=== PATIENT | female | born 1955 | race Caucasian/White ===

== ENCOUNTER 2017-12-16 11:11 | Inpatient (IN) ==
[2017-12-16 12:06] LABS: Bilirubin,Urine Small (Negative); Blood,Urine Negative (Negative); Clarity,Urine Cloudy (Clear); Color,Urine Dark Yellow (Yellow); Glucose,Urine (UA) Normal (Normal); Ketones,Urine Negative (Negative); Leukocyte Esterase,Urine Small (Negative); Nitrite,Urine Negative (Negative); Protein,Urine 30 mg/dL (Neg-Trace); Specific Gravity,Urine 1.021 (1.010-1.025); Urobilinogen,Urine Normal (Normal)
[2017-12-16] MEDS ORDERED: *HR* FentaNYL (PF) 100 MCG/2 ML VIAL IVP ONE (12:06)
[2017-12-16] MEDS ORDERED: Ondansetron 4 MG/2 ML VIAL IVP ONE (12:06)
[2017-12-16 12:09] LABS: Bacteria,Urine None Seen per hpf (None-Few); Hyaline Casts,Urine Few per lpf (None-Few); Squamous Epithelial Cell,Urine Many per lpf (None-Few); WBC,Urine 15-30 per hpf (0-3)
--- NOTE | 2017-12-16 12:13 | Emergency Department Note ---
Disposition Clinical Impression: Cholecystitis Disposition: Admitted As Inpatient Condition: Fair Referrals: aCssie Campa CNP [Primary Care Provider] - Forms: ED Satisfaction Letter, Work/School Release Time of Disposition: 14:09 Abdominal Pain HPI - General Chief Complaint: ED Abdominal Pain Stated Complaint: "gallstone" Time Seen by Provider: 12/16/17 11:49 Source: patient Limitations: no limitations Nursing Notes Reviewed: Yes Vital Signs Reviewed: Yes - History of Present Illness HPI Narrative: Patient presents to the ED with a chief complaint of upper abdominal pain. She is having similar symptoms last night and went to [facility]. She said they did a CT scan was abnormal and told her she had a stone in the gallbladder neck. She states she was told was inflamed but she did not want to see the surgeon so she comes here today. Patient states she has had gallbladder problems for years but it is worse today. She is not vomited that she has taken Zofran. She had a fever home of 99. Pain Scale: 7 - Related Data Allergies Allergy/AdvReac Type Severity Reaction Status Date / Time naproxen Allergy Hives Verified 12/16/17 11:20 All systems ED: reviewed and negative except as stated. Constitutional: Denies: fever Cardiovascular: Denies: chest pain Gastrointestinal: Reports: abdominal pain, nausea. Denies: vomiting, diarrhea Abdominal Pain PMH - Past Medical History Medical history: Reports: other (pulm fibrosis) Female Surgical History: Reports: no surgical history Psychiatric history: Reports: depression - Social History Smoking status: Current every day smoker Alcohol use: Reports: none Drug use: Reports: none Physical Exam Patient awake and alert laying on her side. She has right upper quadrant tenderness with positive Briggs sign. - General Limitations: no limitations General appearance: alert - Head Head exam: atraumatic, normocephalic - Eye Eye exam: Present: normal appearance - ENT ENT exam: normal exam - Neck Neck exam: Present: normal inspection - Chest Chest inspection: Present: normal inspection - Respiratory Respiratory exam: Present: normal lung sounds bilaterally - Cardiovascular Cardiovascular exam: Present: regular rate, normal rhythm, normal heart sounds - Neurological Exam Neurological exam: Present: alert, oriented X3 - Psychiatric Psychiatric exam: Present: normal affect - Skin Skin exam: Present: warm, dry Course Course Narrative: Hemolytically stable. Attempting to obtain CT from [facility]. Will check ultrasound gallbladder. Pain control the meantime. - Reevaluation(s) Reevaluation #1: Exam and ultrasound consistent with a cholecystitis. Page eating surgery. Patient requesting consult Dr. Sharpe. Time: 13:21 - Consultations Consultation #1: Dr. Sharpe evaluated the patient in the ED and will take to the OR. Time: 14:08 Vital Signs Temperature 99.4 F 12/16/17 11:20 Pulse Rate 114 12/16/17 11:20 Respiratory Rate 20 12/16/17 11:20 Blood Pressure 117/68 12/16/17 11:20 O2 Sat by Pulse Oximetry 94 12/16/17 11:20 Temperature 99.4 F 12/16/17 11:20 Pulse Rate 102 12/16/17 13:26 Respiratory Rate 16 12/16/17 13:26 Blood Pressure 116/59 12/16/17 13:26 O2 Sat by Pulse Oximetry 92 12/16/17 13:26 Oxygen Delivery Oxygen Delivery Nasal Cannula Abdominal Pain - Lab Data Result diagrams: 12/16/17 12:26 12/16/17 12:26 Lab Results 12/16/17 12/16/17 12/16/17 Range/Units 11:30 12:26 12:26 WBC 19.9 H (4.3-11.1) K/mcL RBC 4.88 (3.82-4.97) M/mcL Hgb 14.9 (11.5-15.4) g/dL Hct 43.3 (35.3-44.9) % MCV 88.7 (83.0-100.0) fL MCH 30.5 (28.0-33.3) pg MCHC 34.4 (31.6-35.5) g/dL RDW 12.5 (11.5-14.5) % Plt Count 356 (140-400) K/mcL MPV 9.9 (9.4-12.4) fL Immature Gran % 0.7 (0-4) % Seg Neutrophils % 77.7 % Lymphocytes % 13.7 % Monocytes % 7.5 % Eosinophils % 0.1 % Basophils % 0.3 % Neutrophils # 15.5 H (1.6-8.9) K/mcL Lymphocytes # 2.7 (0.6-4.6) K/mcL Monocytes # 1.5 H (0.0-1.3) K/mcL Eosinophils # 0.0 (0.0-0.6) K/mcL Basophils # 0.1 (0.0-0.2) K/mcL Sodium 133 L (136-145) mEq/L Potassium 3.5 (3.5-5.1) mEq/L Chloride 100 (98-107) mEq/L Carbon Dioxide 27 (23-29) mEq/L BUN 9 (8-23) mg/dL Creatinine 0.61 (0.60-1.20) mg/dL Est GFR ( Amer) > 60 (> 60) Est GFR (Non-Af Amer) > 60 (> 60) BUN/Creatinine Ratio 15 (6-26) Glucose 134 H (70-105) mg/dL Calculated Osmolality 277 L (280-300) Calcium 8.9 (8.6-10.3) mg/dL Total Bilirubin 0.7 (0.3-1.0) mg/dL AST 15 (13-39) Units/L ALT 14 (7-52) Units/L Alkaline Phosphatase 84 (34-104) Units/L Serum Total Protein 6.9 (6.4-8.9) g/dL Albumin 3.8 (3.5-5.7) g/dL Globulin 3.1 (2.4-3.5) g/dL Albumin/Globulin Ratio 1.2 (1.1-2.2) Amylase 21 L (29-103) Units/L Lipase 3 L (11-82) Units/L Urine Color Dark Yellow (Yellow) Urine Clarity Cloudy A (Clear) Urine pH 7.0 (5.0-8.0) pH Units Ur Specific Hunters 1.021 (1.010-1.025) Urine Protein 30 H (Neg-Trace) mg/dL Urine Glucose (UA) Normal (Normal) mg/dL Urine Ketones Negative (Negative) mg/dL Urine Blood Negative (Negative) Urine Nitrite Negative (Negative) Urine Bilirubin Small H (Negative) Urine Urobilinogen Normal (Normal) mg/dL Ur Leukocyte Esterase Small H (Negative) Urine Microscopic RBC 5-15 H (0-3) per hpf Urine Microscopic WBC 15-30 H (0-3) per hpf Ur Squamous Epith Cells Many H (None-Few) per lpf Ur Renal Epithelial Cell Few (None-Few) per hpf Urine Bacteria None Seen (None-Few) per hpf Hyaline Casts Few (None-Few) per lpf Ur Culture Indicated? NO. A (NO)
[2017-12-16] MEDS ORDERED: 0.9 % Sodium Chloride 1,000 ML IVC ONE (12:15)
[2017-12-16 12:32] LABS: Renal Epithelial Cells,Urine Few per hpf (None-Few)
[2017-12-16 12:45] LABS: Basophils # 0.1 K/mcL (0.0-0.2); Basophils % 0.3 %; Eosinophils % 0.1 %; Hematocrit 43.3 % (35.3-44.9); Hemoglobin 14.9 g/dL (11.5-15.4); Immature Granulocytes % 0.7 % (0-4); Lymphocytes # 2.7 K/mcL (0.6-4.6); Lymphocytes % 13.7 %; Mean Corpuscular HGB Conc 34.4 g/dL (31.6-35.5); Mean Corpuscular Hemoglobin 30.5 pg (28.0-33.3); Mean Corpuscular Volume 88.7 fL (83.0-100.0); Mean Platelet Volume 9.9 fL (9.4-12.4); Monocytes # 1.5 K/mcL (0.0-1.3); Monocytes % 7.5 %; Neutrophils # 15.5 K/mcL (1.6-8.9); Platelet Count 356 K/mcL (140-400); Red Blood Count 4.88 M/mcL (3.82-4.97); Red Cell Distribution Width 12.5 % (11.5-14.5); Segmented Neutrophils % 77.7 %
[2017-12-16 13:20] LABS: Alanine Aminotransferase 14 Units/L (7-52); Albumin 3.8 g/dL (3.5-5.7); Albumin/Globulin Ratio 1.2 (1.1-2.2); Alkaline Phosphatase 84 Units/L (34-104); Amylase 21 Units/L (29-103); Aspartate Amino Transferase 15 Units/L (13-39); BUN/Creatinine Ratio 15 (6-26); Bilirubin,Total 0.7 mg/dL (0.3-1.0); Blood Urea Nitrogen 9 mg/dL (8-23); Calcium 8.9 mg/dL (8.6-10.3); Carbon Dioxide 27 mEq/L (23-29); Chloride 100 mEq/L (98-107); Globulin 3.1 g/dL (2.4-3.5); Glucose 134 mg/dL (70-105); Lipase 3 Units/L (11-82); Osmolality,Calculated 277 (280-300); Potassium 3.5 mEq/L (3.5-5.1); Sodium 133 mEq/L (136-145); Total Protein 6.9 g/dL (6.4-8.9); eGFR For African Americans > 60 (> 60); eGFR For Non-African Americans > 60 (> 60)
[2017-12-16] MEDS ORDERED: Piperacillin/Tazobactam 3.375 GM in 0.9 % Sodium Chloride Mini Bag 100 ML IVPB ONE ×2 (14:06→22:00)
--- NOTE | 2017-12-16 14:37 | General Surg History&Physical ---
Date of Encounter: 12/16/17 Time of Encounter: 13:50 History of Present Illness Chief complaint: Right upper quadrant abdominal pain HPI: Ms. Rosales is a 62 year old, referred for further surgical evaluation of approximately a 48 hour history of progressive right upper quadrant abdominal pain. Ultrasound gallbladder shows sludge and stones within the gallbladder, markedly thickening of the gallbladder wall as well as a positive sonographic Briggs's sign. Pericholecystic fluid was not definitively seen however the exam was limited by overlying bowel gas. The patient's clinical findings, sonogram and labs are consistent with acute calculus cholecystitis. The patient describes severe pain, nausea but no vomiting, fevers, chills, or jaundice. Past medical history: Pulmonary fibrosis, chronic hypoxia for which the patient uses home oxygen; depression Surgical history: None Allergies Naprosyn Medications: Q [id number] Supplemental oxygen at 4 L/m nasal cannula Social history: Patient continues to smoke; she admits to rare alcoholic beverage does not consume any illicit drug Physical examination: Age-appropriate woman, resting comfortably in her emergency department bed. She is 1.6 m tall, 95.25 kg, BMI 35.5. She is on oxygen via nasal cannula 3 L/min Temperature 99.4, pulse 102-114; respiratory rate 16-20; blood pressure 116/ 59; SPO2 on 3 L/m 92-94%. Skin: Warm, no obvious jaundice Lungs: Harsh breath sounds but no obvious wheezing or rales. No abdominal pain and deep inspiration. Frequent nonproductive cough. Cardiac: Rapid rate but no appreciable murmurs Abdomen: Soft, tender right upper quadrant just lateral to the midclavicular line, subcostal space. Hypoactive bowel sounds. The gallbladder is nonpalpable but exam is limited by involuntary guarding in the right upper quadrant Extremities: No obvious clubbing, cyanosis, or edema. Laboratories: White count 19.9, hemoglobin 14.9, hematocrit 43.3. Platelet count 356,000. Neutrophils 15.5 Sodium 133, potassium 3.5, BUN 9, creatinine 0.61; blood glucose 134 Bilirubin 0.7, AST 15, ALT 14, alkaline phosphatase 84. Amylase 21, lipase 3 Urinalysis notable for pH 7.0, specific gravity 1.0-1 protein 30, leukocyte esterase small; 5-15RFBC/hpf; 15-30WBC/hpf Impression: Acute calculus cholecystitis Chronic pulmonary fibrosis with hypoxemia Plan: Admit for surgical intervention (cholecystectomy) later today. This is been discussed in detail with the patient and her family in attendance. Risks of surgery include hemorrhage, infection, intra-abdominal abscess, Bile leak, injury to adjacent ducks, vessels, organs, or bowel. The patient is at increased risk for respiratory complications such as pneumonia, respiratory failure, hypoxia which may require prolonged mechanical ventilation. The patient is a reasonable candidate for laparoscopic cholecystectomy but understands an open cholecystectomy may become necessary. The risk of nonoperative management or delaying surgery including worsening cholecystitis, sepsis, and increased difficulty of surgery requiring additional operative time and increased anesthesia time. These factors include contribute to worsening pulmonary status. The patient expressed understanding and is willing to proceed as outlined above. The patient will be kept NPO, she will be provided her usual home meds, supplemental oxygen, and pain meds. Zosyn has been initiated in the emergency department and will be continued until surgery. Past Med Surg Social Fam HX - Past Medical History Medical history: other (pulm fibrosis) Psychiatric history: depression - Social History Smoking Status: Current every day smoker Smokeless Tobacco Status: No Alcohol use: none Drug use: none Medications and Allergies 3 Allergy/AdvReac Type Severity Reaction Status Date / Time naproxen Allergy Hives Verified 12/16/17 11:20 Review of Systems All systems PM: The remainder of the systems were reviewed and are negative General Surgery Exam Initial Vital Signs Temp Pulse Resp BP Pulse Ox 99.4 F 114 20 117/68 94 12/16/17 11:20 12/16/17 11:20 12/16/17 11:20 12/16/17 11:20 12/16/17 11:20 Results - Labs 12/16/17 12:26 12/16/17 12:26 Abnormal lab results WBC 19.9 K/mcL (4.3-11.1) H 12/16/17 12:26 Neutrophils # 15.5 K/mcL (1.6-8.9) H 12/16/17 12:26 Monocytes # 1.5 K/mcL (0.0-1.3) H 12/16/17 12:26 Sodium 133 mEq/L (136-145) L 12/16/17 12:26 Glucose 134 mg/dL (70-105) H 12/16/17 12:26 Calculated Osmolality 277 (280-300) L 12/16/17 12:26 Amylase 21 Units/L (29-103) L 12/16/17 12:26 Lipase 3 Units/L (11-82) L 12/16/17 12:26 Urine Clarity Cloudy (Clear) A 12/16/17 11:30 Urine Protein 30 mg/dL (Neg-Trace) H 12/16/17 11:30 Urine Bilirubin Small (Negative) H 12/16/17 11:30 Ur Leukocyte Esterase Small (Negative) H 12/16/17 11:30 Urine Microscopic RBC 5-15 per hpf (0-3) H 12/16/17 11:30 Urine Microscopic WBC 15-30 per hpf (0-3) H 12/16/17 11:30 Ur Squamous Epith Cells Many per lpf (None-Few) H 12/16/17 11:30 Ur Culture Indicated? NO. (NO) A 12/16/17 11:30 All other labs normal.
[2017-12-16] MEDS ORDERED: *HR* OxyCODONE Immed Rel 5 MG TABLET PO PRN ×2 (15:26→17:36)
[2017-12-16] MEDS ORDERED: Ringers Solution, Lactated 1,000 ML IVC SCH (15:26)
[2017-12-16] MEDS ORDERED: Pantoprazole 40 MG VIAL IVP SCH (15:26)
--- NOTE | 2017-12-16 15:40 | Anesthesia Evaluation PreOp ---
Date of Encounter: 12/16/17 Time of Encounter: 15:38 - Past History Planned Operation: Lap. Maryann Cardiac History: Denies any Significant Hx Pulmonary History: Smoker, Other (Pulmonary fibrosis, chronic hypoxia for which the patient uses home oxygen) BRIM STITCHER History: Other (Depression) Other Medical History: Denies Any Significant HX Anesthesia History: No Prior Anesthetic Complications, Past Anesthesia : No Alcohol Use: none Drug use: none Medications and Allergies Beclomethasone Diprop 80mcg [QVAR 80 mcg] 1 puff IH BID 12/16/17 [History] Esomeprazole Magnesium [Nexium 24Hr] 20 mg PO DAILY 12/16/17 [History] Gabapentin [Neurontin] 300 mg PO HS 12/16/17 [History] Ibuprofen [Ibuprofen] 800 mg PO TID 12/16/17 [History] Loratadine [Claritin] 10 mg PO DAILY 12/16/17 [History] Venlafaxine HCl [Venlafaxine HCl ER] 37.5 mg PO DAILY 12/16/17 [History] hydroCHLOROthiazide [Hydrochlorothiazide] 25 mg PO DAILY 12/16/17 [History] 3 Allergy/AdvReac Type Severity Reaction Status Date / Time naproxen Allergy Hives Verified 12/16/17 11:20 - Meds/Allergy Pre-op Review Medications Reviewed: Yes Allergies Reviewed: Yes Beta Blockers on Current Med List: No Anesthesia Results - Labs 12/16/17 12:26 12/16/17 12:26 Anesthesia Exam Vital Signs/O2 Sat, Most Current Temp Pulse Resp BP Pulse Ox 100.0 F H 96 18 101/64 93 12/16/17 15:51 12/16/17 15:51 12/16/17 15:51 12/16/17 15:51 12/16/17 15:51 NPO (# of Hours): > 8 hrs Pain Scale: 0 Pain Scale Used: Numeric (1 - 10) - HEENT Pupil (Motor): Pupils equal, EOMI Mallampati: II Teeth: Missing Denture Type: Upper: Complete Oral Opening: Greater than 3 - BRIM STITCHER LOC: Oriented BRIM STITCHER Motor: Normal RUE, Normal LUE, Normal RLE, Normal LLE, Normal Face BRIM STITCHER Sensory: Normal: RUE, LUE, RLE, LLE, Face - Cardiac Rhythm: Regular Murmur: None JVD: No Carotid Bruit: No - Pulmonary Breath Sounds: bilateral Clear Respiratory Effort: Symmetrical Anesthesia Assess/Plan ASA Score: 3 Modified Alen Scale for Level of Consciousness: Cooperative, oriented, and tranquil Anesthetic Plan: General Autologous Blood: Yes Monitoring Plan: Standard Monitors Recovery Plan: PACU
[2017-12-16] MEDS ORDERED: Albuterol 2.5 MG/3 ML NEBULIZER ONE ×2 (16:32→20:37)
[2017-12-16] MEDS ORDERED: Albuterol 2.5 MG/3 ML NEBULIZER IH ONE ×2 (16:35→16:37)
[2017-12-16] MEDS ORDERED: Bupivacaine/EPI 1:200k 0.25%PF 30 ML VIAL ONE ×2 (16:40→18:26)
[2017-12-16] MEDS ORDERED: Isovue-300 50 ML VIAL IVP ONE (16:40)
[2017-12-16] MEDS ORDERED: *HR* Propofol 200 MG/20 ML VIAL IVP ONE (17:14)
[2017-12-16] MEDS ORDERED: *HR* FentaNYL (PF) 100 MCG/2 ML VIAL ONE ×2 (17:14→17:48)
[2017-12-16] MEDS ORDERED: *HR* Rocuronium Bromide 50 MG/5 ML VIAL ONE (17:15)
[2017-12-16] MEDS ORDERED: Lidocaine -MPF 2% 2 ML VIAL ONE (17:15)
[2017-12-16] MEDS ORDERED: Dexamethasone 4 MG/ML VIAL ONE (17:34)
[2017-12-16] MEDS ORDERED: Ondansetron 4 MG/2 ML VIAL ONE (17:34)
[2017-12-16] MEDS ORDERED: *HR* Promethazine 25 MG/ML VIAL IVP PRN (17:36)
[2017-12-16] MEDS ORDERED: Neostigmine Methylsulfate 3 MG/3 ML SYRINGE ONE (19:28)
--- NOTE | 2017-12-16 20:00 | Operative Note ---
Date of procedure: 12/16/17 Pre-op diagnosis: Acute calculus cholecystitis with edematous thickened gallbladder isaacs Post-op diagnosis: same Procedure: Laparoscopy, open cholecystectomy; intraoperative cholangiogram Complications: None apparent Anesthesia: GETA Local Anesthetics: 0.25% Sensorcaine HCL with Epinephrine 1:200,000 SubQ (cc) ( 57 mL) Surgeon: Avtar Sharpe Was there an education assistant present: No Estimated blood loss (cc): 250 IV fluids (cc): 1,100 Specimen: gallbladder Condition: stable Disposition: PACU Procedure in Detail: To the operating room where she was placed supine upon the operating room table. The patient was appropriately identified as to person and procedure. The accuracy of this information was confirmed by the patient and procedure team. The patient was intubated and anesthetized under the supervision of Dr. Russel Magdaleno. The abdomen was prepped and draped in usual sterile fashion. When the abdomen was examined under anesthesia, the gallbladder was readily palpable several centimeters caudal to the costal margin (Courvoisier's gallbladder). A Peterson catheter was inserted. Several milliliters of 0.25% bupivacaine with 1- 200,000 units epinephrine was infiltrated into the infraumbilical skin. A small transverse incision was made and extended to the fascia. Additional bupivacaine with epinephrine was infiltrated into the fascia. The fascia was grasped, elevated, and incised. An 11 mm XCEL port was established. The rigid laparoscope was placed within the obturator to visualize passage through the layers of the anterior abdominal wall. When the abdominal cavity was accessed, the obturator was replaced by the rigid laparoscope, the abdomen was insufflated with gaseous carbon dioxide. There was no obvious visible injury from establishing this port. Under direct visualization 3 additional ports were placed along the right costal margin in the subxiphoid, midclavicular, and anterior axillary line. Each site was infiltrated with the bupivacaine with epinephrine solution. The gallbladder was acutely inflamed and tensely distended. Using an endoscopic needle I was able to aspirate approximately 40 mL of a dark turbid. This effectively decompressed the gallbladder to permit grasping with endoscopic Kochers. The omentum was densely adherent to the gallbladder. The gallbladder wall was markedly thickened and edematous. Using combined dissection with a endoscopic Vi dissector and Ethicon harmonic faith many of these adhesions were divided and exposure to the gallbladder was improved. A stone was impacted in the neck of the gallbladder limiting visualization of the cystic duct. Dissection continued for a period of time but it was obvious that I was making no progress. It was at this time that I decided to convert to open cholecystectomy. The instrumentation was exchanged. When the team was ready, several milliliters of 0.25% bupivacaine with epinephrine was infiltrated into the subcostal skin. A subcostal incision was made and extended to the anterior rectus sheath. Bleeding points were controlled with electrocautery. Right rectus abdominis was divided with the aid of electrocautery. The posterior rectus sheath was elevated and divided. This allowed atraumatic entry into the abdominal cavity. Exposure was facilitated by a self-retaining Omni tract retractor. The gallbladder was dissected in a retrograde fashion. The cystic artery was identified, clipped and divided. I was able to dissected beyond the impacted stone in the infundibulum of the gallbladder. The cystic duct was identified and encircled with a 2-0 silk. The cystic duct was incised, a Taut cholangiogram catheter inserted. Using C-arm fluoroscopy a cholangiogram was then completed. There was incomplete filling of the proximal pedicle retrieved due to rapid runoff of the contrast. There were no filling defects within the common bile duct. The common hepatic duct filled only partially. The cystic duct was tortuous and enlarged. Additional Isovue contrast was administered yielding no additional visualization of the proximal hepatobiliary tree. Based on these limited findings I concluded that the ductal system was grossly normal and if necessary an MRCP would be obtained postoperatively. [facility] provided an intraoperative reading with no additional findings reported. The cholangiogram catheter was removed. The cystic duct was clipped. Hemostasis from the liver bed was aided by applying Juan Pablo. The fascia of the infraumbilical opening was closed with a interrupted [id number] 0 Vicryl with a gloved hand placed intraperitoneally. The liver bed was again inspected for adequate hemostasis. A limited examination of the stomach, duodenum, small bowel and colon demonstrated no significant abnormalities. The abdominal wall was then closed in layers. The posterior rectus sheath was approximated with running 0 Vicryl. Several milliliters of 0.25% bupivacaine with epinephrine was infiltrated into this fascial layer. The anterior rectus sheath was approximated with interrupted [id number] 0 Vicryl. This layer was also infiltrated with the bupivacaine with epinephrine solution. The subcutaneous tissue was approximated with running 3-0 Vicryl. The skin edges approximated with liudmila. Dry sterile dressings were applied. The patient was taken to ICU for postoperative management and care. This was necessary due to the patient's history of pulmonary fibrosis with chronic hypoxia. Needle, sponge, and instrument counts were correct at the close of the case. Total volume of 0.25% bupivacaine with 1-200,000 units epinephrine, 57 mL.
[2017-12-16] MEDS ORDERED: Acetaminophen 325 MG TABLET PO PRN (20:30)
[2017-12-16] MEDS ORDERED: Ondansetron 4 MG/2 ML VIAL IVP PRN (20:30)
[2017-12-16] MEDS ORDERED: Ringers Solution, Lactated 500 ML IVC ONE (20:30)
[2017-12-16] MEDS: Albuterol 2.5 MG/3 ML NEBULIZER IH SCH (20:48)
[2017-12-16] MEDS: Beclomethasone 80mcg MDI IH SCH (20:48)
[2017-12-16] MEDS: *HR* OxyCODONE Immed Rel 5 MG TABLET PO PRN (21:55)
[2017-12-16] MEDS ORDERED: Piperacillin/Tazobactam 3.375 GM in 0.9 % Sodium Chloride Mini Bag 100 ML IVPB SCH (22:00)
[2017-12-17] MEDS: Albuterol 2.5 MG/3 ML NEBULIZER IH SCH ×7 (00:09→23:01)
[2017-12-17] MEDS: Ringers Solution, Lactated 1,000 ML IVC SCH ×2 (00:20→03:58)
[2017-12-17] MEDS: *HR* OxyCODONE Immed Rel 5 MG TABLET PO PRN ×2 (03:56→08:03)
[2017-12-17 04:26] LABS: Basophils % 0.1 %; Immature Granulocytes % 0.6 % (0-4); Lymphocytes # 1.8 K/mcL (0.6-4.6); Lymphocytes % 9.5 %; Mean Corpuscular HGB Conc 32.2 g/dL (31.6-35.5); Mean Corpuscular Hemoglobin 29.2 pg (28.0-33.3); Mean Corpuscular Volume 90.7 fL (83.0-100.0); Monocytes # 1.2 K/mcL (0.0-1.3); Monocytes % 6.4 %; Neutrophils # 15.9 K/mcL (1.6-8.9); Platelet Count 284 K/mcL (140-400); Red Blood Count 4.08 M/mcL (3.82-4.97); Red Cell Distribution Width 12.7 % (11.5-14.5); Segmented Neutrophils % 83.4 %
[2017-12-17 04:27] LABS: Hemoglobin 11.9 g/dL (11.5-15.4)
[2017-12-17 04:46] LABS: Alanine Aminotransferase 51 Units/L (7-52); Albumin 3.1 g/dL (3.5-5.7); Albumin/Globulin Ratio 1.1 (1.1-2.2); Alkaline Phosphatase 61 Units/L (34-104); Aspartate Amino Transferase 64 Units/L (13-39); BUN/Creatinine Ratio 16 (6-26); Bilirubin,Total 0.5 mg/dL (0.3-1.0); Blood Urea Nitrogen 10 mg/dL (8-23); Calcium 8.4 mg/dL (8.6-10.3); Carbon Dioxide 27 mEq/L (23-29); Chloride 106 mEq/L (98-107); Globulin 2.8 g/dL (2.4-3.5); Glucose 168 mg/dL (70-105); Osmolality,Calculated 287 (280-300); Potassium 3.9 mEq/L (3.5-5.1); Sodium 137 mEq/L (136-145); Total Protein 5.9 g/dL (6.4-8.9); eGFR For African Americans > 60 (> 60); eGFR For Non-African Americans > 60 (> 60)
[2017-12-17] MEDS: Beclomethasone 80mcg MDI IH SCH ×2 (07:35→20:18)
[2017-12-17] MEDS ORDERED: hydroCHLOROthiazide 25 MG TABLET PO SCH (09:00)
[2017-12-17] MEDS ORDERED: Pantoprazole 40 MG VIAL IVP SCH (09:00)
[2017-12-17] MEDS ORDERED: Venlafaxine XR (24 HR) 37.5 MG CAP.ER.24H PO SCH (09:00)
[2017-12-17] MEDS ORDERED: *HR* OxyCODONE Immed Rel 5 MG TABLET PO PRN (11:34)
--- NOTE | 2017-12-17 11:44 | General Surgery Progress Note ---
Date of Encounter: 12/17/17 Time of Encounter: 11:38 Subjective Patient reports: feels better Narrative: General Surgery - POD #1 Patient seated in a chair at bedside; feeling significantly improved from preop. Afebrile, maximum temperature through the night, 99.5; heart rate currently 100 but has been as high as 113; 80-97 through the night Blood pressure 105/54 to 116/65; respiratory rate 16-20. SPO2 on 3 L per nasal cannula 90-93%. Lungs: No audible breath sounds posteriorly; clear anteriorly. Minimal pain on deep inspiration as expected following open cholecystectomy Cardiac: Tachycardia without appreciable murmurs Abdomen: Soft with active bowel sounds. Incisional tenderness as expected. Incisions and port sites clean and dry. Dressings removed Urine output: 1450 mL recorded for this calendar day; will remove Peterson catheter. Laboratories: White count 19.1, neutrophils 15.9 - likely response to surgery. Hemoglobin 11.9, hematocrit 37.0. Platelet count 284,000. Electrolytes, BUN/creatinine remained within normal limits; AST 64 other LFTs within normal limits. Impression/plan: Acute calculous cholecystitis with markedly thickened and edematous gallbladder wall. Postoperative day #1 status post laparoscopy converted to open cholecystectomy. Acceptable postoperative status. Will move to general surgical bed. pulmonary fibrosis with chronic hypoxia - status appears stable Objective Vital Signs - Last 8 Hours Temp Pulse Resp BP Pulse Ox 12/17/17 11:35 99.8 F H 12/17/17 11:23 16 93 12/17/17 10:00 100 18 116/65 90 12/17/17 09:04 99.1 F 12/17/17 09:00 103 15 105/54 92 12/17/17 08:00 113 20 114/53 90 12/17/17 07:35 18 93 12/17/17 07:00 97 22 101/57 94 12/17/17 06:00 83 21 100/53 93 12/17/17 05:25 99.5 F 12/17/17 05:00 82 21 100/51 93 12/17/17 04:00 93 25 138/68 92 12/17/17 03:46 16 105/57 98 Intake and Output 12/16/17 12/17/17 12/17/17 23:59 07:59 15:59 Intake Total 1100 / 1100 324 / 324 Output Total 250 / 250 1250 / 1250 325 / 325 Balance -250 / -250 -150 / -150 -1 / -1 Intake: IV Fluids 1100 / 1100 324 / 324 Lactated Ringers 1,000 ML @ 80 1000 / 1000 324 / 324 mls/hr IVC .[id number] [facility] Rx#: [id number] Zosyn 3.375 GM In 0.9 % Sodium 100 / 100 Chloride (Mini-Bag +) 100 ML @ 25 mls/hr IVPB ONCE ONE Rx#: [id number] Output: Estimated Blood Loss 250 / 250 Catheter 1250 / 1250 325 / 325 Other: Weight 107.5 kg Patient Weight 12/17/17 23:59 Weight 107.5 kg - Labs 12/17/17 03:56 12/17/17 03:56 Diabetes panel 12/17/17 Range/Units 03:56 Sodium 137 (136-145) mEq/L Potassium 3.9 (3.5-5.1) mEq/L Chloride 106 (98-107) mEq/L Carbon Dioxide 27 (23-29) mEq/L BUN 10 (8-23) mg/dL Creatinine 0.61 (0.60-1.20) mg/dL Glucose 168 H (70-105) mg/dL Calcium 8.4 L (8.6-10.3) mg/dL AST 64 H (13-39) Units/L ALT 51 (7-52) Units/L Alkaline Phosphatase 61 (34-104) Units/L Albumin 3.1 L (3.5-5.7) g/dL Calcium panel 12/17/17 Range/Units 03:56 Calcium 8.4 L (8.6-10.3) mg/dL Albumin 3.1 L (3.5-5.7) g/dL Pituitary panel 12/17/17 Range/Units 03:56 Sodium 137 (136-145) mEq/L Potassium 3.9 (3.5-5.1) mEq/L Chloride 106 (98-107) mEq/L Carbon Dioxide 27 (23-29) mEq/L BUN 10 (8-23) mg/dL Creatinine 0.61 (0.60-1.20) mg/dL Glucose 168 H (70-105) mg/dL Calcium 8.4 L (8.6-10.3) mg/dL Adrenal panel 12/17/17 Range/Units 03:56 Sodium 137 (136-145) mEq/L Potassium 3.9 (3.5-5.1) mEq/L Chloride 106 (98-107) mEq/L Carbon Dioxide 27 (23-29) mEq/L BUN 10 (8-23) mg/dL Creatinine 0.61 (0.60-1.20) mg/dL Glucose 168 H (70-105) mg/dL Calcium 8.4 L (8.6-10.3) mg/dL Total Bilirubin 0.5 (0.3-1.0) mg/dL AST 64 H (13-39) Units/L ALT 51 (7-52) Units/L Alkaline Phosphatase 61 (34-104) Units/L Albumin 3.1 L (3.5-5.7) g/dL - VTE Documentation of Mechanical Device: Intermittent pneumatic compression device Consult Discharge Plan - Plan Referrals: Avtar Sharpe MD [Non-Partnered Physician] -
[2017-12-17] MEDS ORDERED: Acetaminophen 325 MG TABLET PO PRN (12:21)
[2017-12-17] MEDS ORDERED: Ondansetron 4 MG/2 ML VIAL IVP PRN (12:21)
[2017-12-17] MEDS: *HR* OxyCODONE/APAP 5/325 TABLET PO PRN ×3 (14:42→21:34)
[2017-12-17] MEDS ORDERED: Gabapentin 300 MG CAPSULE PO SCH (21:00)
[2017-12-18] MEDS: Albuterol 2.5 MG/3 ML NEBULIZER IH SCH ×3 (04:00→10:45)
[2017-12-18] MEDS: *HR* OxyCODONE/APAP 5/325 TABLET PO PRN ×2 (04:42→11:02)
[2017-12-18 04:53] LABS: Basophils % 0.2 %; Eosinophils # 0.1 K/mcL (0.0-0.6); Eosinophils % 0.4 %; Hematocrit 34.8 % (35.3-44.9); Hemoglobin 11.3 g/dL (11.5-15.4); Immature Granulocytes % 0.5 % (0-4); Lymphocytes # 4.1 K/mcL (0.6-4.6); Lymphocytes % 24.6 %; Mean Corpuscular HGB Conc 32.5 g/dL (31.6-35.5); Mean Corpuscular Hemoglobin 29.2 pg (28.0-33.3); Mean Corpuscular Volume 89.9 fL (83.0-100.0); Mean Platelet Volume 10.1 fL (9.4-12.4); Monocytes # 1.2 K/mcL (0.0-1.3); Neutrophils # 11.2 K/mcL (1.6-8.9); Platelet Count 283 K/mcL (140-400); Red Blood Count 3.87 M/mcL (3.82-4.97); Red Cell Distribution Width 12.7 % (11.5-14.5); Segmented Neutrophils % 67.3 %
[2017-12-18] MEDS: Beclomethasone 80mcg MDI IH SCH (07:11)
[2017-12-18] MEDS ORDERED: hydroCHLOROthiazide 25 MG TABLET PO SCH (09:00)
[2017-12-18] MEDS ORDERED: Venlafaxine XR (24 HR) 37.5 MG CAP.ER.24H PO SCH (09:00)
[2017-12-18 10:37] VITALS: BP 122/73
--- NOTE | 2017-12-18 14:20 | General Surgery Progress Note ---
Date of Encounter: 12/18/17 Time of Encounter: 14:08 Subjective Patient reports: feels better, pain is less, tolerating a regular diet Narrative: General Surgery - POD #2 Progress Note / Discharge Summary Patient feeling better; pain is diminished but persists. The patient has remained afebrile and hemodynamically stable. Current temperature 99.0; pulse 69, respirations 16, blood pressure 122/73. Patient continues to require oxygen at 4 L/m via nasal cannula to maintain oxygen saturation 91-92%. Off oxygen, when the patient goes to the bathroom, PO2 pulse as low as 82% Lungs: Severely diminished breath sounds both bases, clear anteriorly. No detected rales or rhonchi Cardiac: Regular rate, range 69-90; no detected murmurs. Abdomen: Soft, minimally tender in the right upper quadrant in the vicinity of the subcostal incision. Subcostal incision and port sites intact and healing well. Patient tolerating regular diet, no nausea, vomiting. No postcholecystectomy diarrhea. Peterson catheter has been removed; patient able to void. Urine output for calendar day 12/17/17, approximately 1800; 650 mL so far today. Laboratories: Leukocytosis improving, currently 16.6 (previously 19.1). Neutrophils have improved from 15.9 to 11.2 Hemoglobin 11.3, hematocrit 34.8, platelet count 283,000. LFTs have normalized postop; AST is returned to normal, 25 this morning. Urine cultures- no Growth on preliminary examination Intraoperative pathology - pending Impression: Acute calculus cholecystitis with markedly thickened and edematous gallbladder wall. Postoperative day #2 - acceptable postoperative status Pulmonary fibrosis with chronic hypoxia; patient has required portable oxygen at 4 L/m nasal cannula to maintain saturations greater than 91% Patient will require home oxygen History of depression Plan: Discharge home on home oxygen Activity as tolerated; lifting limited to less than 20 pounds Patient encouraged to be active out of bed; continue incentive spirometry at home following discharge. Patient should frequently cough and deep breathe Regular diet Patient may resume home meds Tylenol, ibuprofen, Motrin, Advil, Aleve, etc. as needed for pain Prescription for Percocet 5/325, #16, one every 6 hours as needed for pain not relieved by [id number] medications Patient may shower, wash incisions with soap and water outpatient follow-up in the office, 12/23/17. Patient to call office on 12/21/17 to make this appointment. Prescription for home oxygen provided. Objective Vital Signs - Last 8 Hours Temp Pulse Resp BP Pulse Ox 12/18/17 10:45 16 91 12/18/17 10:34 99.0 F 69 16 122/73 91 12/18/17 07:19 98.5 F 81 16 114/73 92 12/18/17 07:11 16 92 Intake and Output 12/17/17 12/18/17 12/18/17 23:59 07:59 15:59 Intake Total 350 / 350 440 / 440 Output Total 550 / 550 650 / 650 0 / 0 Balance -550 / -550 -300 / -300 440 / 440 Intake: Oral 350 / 350 440 / 440 Output: Urine 550 / 550 650 / 650 0 / 0 Other: Meal Breakfast Percent of Meal Consumed 90% # Voids 1 # Bowel Movements 0 0 Weight 103 kg 103 kg Patient Weight 12/18/17 23:59 Weight 103 kg - Labs 12/18/17 04:19 12/17/17 03:56 Diabetes panel 12/18/17 Range/Units 04:19 AST 25 (13-39) Units/L Adrenal panel 12/18/17 Range/Units 04:19 AST 25 (13-39) Units/L - VTE Documentation of Mechanical Device: Intermittent pneumatic compression device Consult Discharge Plan - Plan Referrals: Avtar Sharpe MD [Non-Partnered Physician] -
--- NOTE | 2017-12-18 14:26 | Discharge Summary ---
Outpatient Proc Discharge Plan - Plan Additional Instructions: Regular diet Activity as tolerated; lifting limited to less than 20 pounds Patient encouraged to be active out of bed; continue incentive spirometry at home, continue cough and deep breathing Patient may resume home meds Patient may shower, wash incisions with soap and water Home oxygen will be prescribed,; 4 L/m Tylenol, ibuprofen, Motrin, Advil, Aleve, etc. as needed for pain Prescription for Percocet 5/325, #16, one every 6 hours as needed for pain not relieved by [id number] medications Outpatient follow-up my office, 12/23/17; patient to call office on 12/21/17 to make this appointment. Prescriptions: OxyCODONE/APAP 5/325 [Percocet 5/325 MG] 1 each PO Q6H PRN 4 Days #16 tablet PRN Reason: Pain Home Medications: Beclomethasone Diprop 80mcg [QVAR 80 mcg] 1 puff IH BID 12/16/17 [History] Esomeprazole Magnesium [Nexium 24Hr] 20 mg PO DAILY 12/16/17 [History] Gabapentin [Neurontin] 300 mg PO HS 12/16/17 [History] Ibuprofen 800 mg PO TID 12/16/17 [History] Loratadine [Claritin] 10 mg PO DAILY 12/16/17 [History] Venlafaxine HCl [Venlafaxine HCl ER] 37.5 mg PO DAILY 12/16/17 [History] hydroCHLOROthiazide [Hydrochlorothiazide] 25 mg PO DAILY 12/16/17 [History] Acetaminophen [Tylenol] 650 mg PO Q6HR PRN tablet 12/18/17 [Rx] OxyCODONE/APAP 5/325 [Percocet 5/325 MG] 1 each PO Q6H PRN 4 Days #16 tablet [Rx]
== END 2017-12-18 17:00 | disposition home or self-care (01) | DRG 263 ==
LOC: 3ANU 11:11 → EMEROO 11:11 → 3ANU 15:15 → ICNU 19:50 → 3ANU 12-17 19:14
PROVIDERS: ADMIT Surgery; ATTEND Surgery